=== PATIENT | female | born 1985 | race Caucasian/White ===

== ENCOUNTER 2017-10-09 18:24 | Emergency (ER) | payer OTHER ==
[2017-10-09] MEDS ORDERED: Lidocaine 1% 30 ML SDV INJECT ONE (19:04)
--- NOTE | 2017-10-10 01:07 | ER ---
SUBJECTIVE: The patient is a 31-year-old female, who comes in with a fish hook stuck in her right index finger tip. She comes in with her wanting that to be removed. She states her tetanus and shots are up to date. No other trauma. She was out fishing today with her . PAST MEDICAL HISTORY: 1. . 2. Hypertension. 3. Three C sections. It is noncontributory. 4. Depression. CURRENT MEDICATIONS: Include sertraline 50 mg p.o. daily. ALLERGIES: 1. Metoclopramide, causes hives. 2. Sulfa antibiotics, causes hives. SOCIAL HISTORY: She is . REVIEW OF SYSTEMS: Unremarkable with exception of fish hook in her right index finger. No other issues. OBJECTIVE: Vital signs: Stable. She is afebrile. HEENT: Normocephalic and atraumatic. General: Somewhat anxious. Laughing, talkative, interactive. Lungs: No respiratory distress. Extremities: Focused exam shows large fish hook in the right index finger tip at the ventral aspect of the finger pad. It is then just to the point of magalys being very beneath the skin. It is very tender to her. PROCEDURE: The area is cleansed, digital block was used with 1% plain lidocaine. A #11 scalpel was used to gently slight in along the magalys of the blood. Released few of the strings of tissue holding it, and it was firmly grasped and removed easily. The area was then cleansed and dressed. She tolerated this all very well. ASSESSMENT: Removal of a fish hook from right index finger tip. PLAN: Follow up with the PCP as needed. Take Tylenol or ibuprofen for any discomfort. Keep clean and dry. Watch for infection. [facility] /[id number]
== END 2017-10-09 19:45 | disposition home or self-care (01) ==
LOC: DL.ED 18:24
DX: S60.450A Superficial foreign body of right index finger, initial encounter (principal); I10 Essential (primary) hypertension; Z88.2 Allergy status to sulfonamides; W22.8XXA Striking against or struck by other objects, initial encounter; W45.8XXA Other foreign body or object entering through skin, initial encounter
CPT/HCPCS: 10120; 99282